=== PATIENT | female | born 1955 | race Caucasian/White ===

== ENCOUNTER 2025-04-27 06:51 | Day surgery (SDC) | payer MEDICARE, SELFPAY ==
[2025-04-26 08:17] VITALS: BMI 42.5
--- NOTE | 2025-04-27 07:01 | P.HP_ITS ---
History of Present Illness *Admission Date: 04/27/25 *Reason for visit:: Dyspepsia *History of present illness: Mrs. Pereira is a 69-year-old female who is here for diagnostic upper endoscopy secondary to epigastric abdominal pain that radiates up into her left chest. She has had bloating and belching which was awakening her at nighttime. She reports fullness, early satiety and a couple of episodes of nausea in the middle the night but no vomiting. She has been having heartburn and reflux regularly. She is on pantoprazole and Pepcid twice daily. She is still getting breakthrough symptoms. She was referred to both GI and cardiology and in the antrum of being seen ended up in the emergency department last month. Her CAT scan was unremarkable. She also had labs and cardiac evaluation which was unremarkable. Her last upper endoscopy was reportedly more than 10 years ago.. The examination is deemed medically necessary for diagnostic EGD. The patient has been seen, interviewed and examined prior to the procedure by both myself and the anesthesia provider. [facility] Disclaimer: The information contained in this section may have been updated after the patient was seen, as this information can be updated by other users. Medical History (Updated 04/27/25 @ 08:37 by Eligio Vera II, MD) History of gastroesophageal reflux (GERD) High blood pressure Surgical History H/O tubal ligation Family History Mother Cancer Grandfather Heart attack Daughter Cancer Social History (Updated 04/27/25 @ 08:10 by Neil Moss CRNA) Smoking Status: Never smoker alcohol intake: never substance use type: denies use current occupational status: retired Travel in the last 8 weeks?: Inside the [place] Have you lived/traveled outside US in past 30 days?: No Contact w/someone who lives/traveled outside US past 30 days?: No Exposure to someone with infectious disease in past 14 days?: No Do you have a fever (greater than 100.4 F or 38 C)?: No Have you tested positive for COVID-19?: No Exposed to someone with COVID-19 in past 14 days?: No Do you have a sore throat?: No Do you have a cough?: No Do you have any weakness?: No Are you experiencing any nausea/vomitting?: No Do you have any diarrhea?: No Are you experiencing any unusual bleeding?: No Do you have any muscle aches/pain?: No Do you have any abdominal pain?: No Are you experiencing loss of taste or smell?: No Other Medical History Have you received the Pneumonia Vaccine: Yes Review of Systems Review of Systems Review of systems (narrative): Negative *Cardiovascular Comments: Negative *Gastrointestinal Comments: Negative *Genitourinary Comments: Negative *Musculoskeletal Comments: Negative *Neurologic Comments: Negative Meds Home Medications and Allergies Home Medications ?Medication ?Instructions ?Recorded ?Confirmed ?Type famotidine 20 mg tablet (Pepcid) 20 mg PO BID 04/12/25 04/27/25 History losartan 50 mg tablet 50 mg PO BID 04/12/25 History pantoprazole 40 mg tablet,delayed 40 mg PO DAILY 04/1204/27/25 History release New Prescriptions to Start Prescriptions: Allergies Allergy/AdvReac Type Severity Reaction Status Date / Time No Known Allergies Allergy Verified 04/26/25 08:13 Exam Data for Last 24 hours I & O for Last 24 hours: Intake & Output 04/24/25 04/25/25 04/26/25 04/27/25 23:59 23:59 23:59 23:59 Weight 218 lb *Routine HEENT Exam Head: Present normocephalic Eye: Present EOMI and PERRL ENT: Present mucous membranes moist *Routine Neck Exam Neck: Present supple *Routine Respiratory Exam Respiratory: Present CTA bilaterally *Routine Cardiovascular Exam Cardiovascular: Present RRR *Routine Abdominal Exam Abdominal: Present soft and normoactive bowel sounds; Absent tenderness *Routine Rectal Exam Rectal:: deferred *Routine Genitalia Exam Genitalia:: deferred *Routine Extremities Exam Extremities: Absent cyanosis, clubbing or edema *Routine Skin Exam Skin: Present warm; Absent rash *Routine Neurological Exam Neurological: Present alert and oriented X3 Assessment and Plan *Assessment and plan (1) Non-cardiac chest pain: Status: Acute Category: Medical Code(s): R07.89 - Other chest pain (2) Epigastric pain: Status: Acute Category: Medical Code(s): R10.13 - Epigastric pain (3) Bloating: Status: Acute Category: Medical Code(s): R14.0 - Abdominal distension (gaseous) (4) Belching: Status: Acute Category: Medical Code(s): R14.2 - Eructation (5) Early satiety: Status: Acute Category: Medical Code(s): R68.81 - Early satiety (6) Gastroesophageal reflux disease: Status: Acute Category: Medical Code(s): K21.9 - Gastro-esophageal reflux disease without esophagitis (7) Heartburn: Status: Acute Category: Medical Code(s): R12 - Heartburn (8) Choking: Status: Acute Category: Medical Code(s): T17.308A - Unspecified foreign body in larynx causing other injury, initial encounter Plan A/P: 1. Noncardiac chest pain with dyspepsia, epigastric pain, bloating, belching, fullness, heartburn and reflux is the preprocedural diagnosis. The patient will be anesthetized/sedated using MAC sedation. The patient has been seen and examined. Cardiac and lung assessment prior to the examination is stable. Proceed with planned diagnostic EGD.
--- NOTE | 2025-04-27 07:05 | HMH.PROCNOTE ---
[facility] Procedure Note Date: 04/27/25 Time: 08:46 Procedure Note:: Upper Endoscopy Procedure Report: Esophagogastroduodenoscopy with cold biopsies and TTS balloon dilation Endoscopost: Eligio Vera II, MD Referring Physician: Sho Hameed MD, [address] [place] [address], [id number], [place] [address] Date of Procedure: April 27, 2025 Equipment: Olympus GIF-1100 standard upper endoscope Sedation: MAC sedation Indications: Mrs. Pereira is a 69-year-old female who is here for diagnostic upper endoscopy secondary to epigastric abdominal pain that radiates up into her left chest. She has had bloating and belching which was awakening her at nighttime. She reports fullness, early satiety and a couple of episodes of nausea in the middle the night but no vomiting. She has been having heartburn and reflux regularly. She is on pantoprazole and Pepcid twice daily. She is still getting breakthrough symptoms. She was referred to both GI and cardiology and in the antrum of being seen ended up in the emergency department last month. Her CAT scan was unremarkable. She also had labs and cardiac evaluation which was unremarkable. Her last upper endoscopy was reportedly more than 10 years ago. The patient does have some intermittent choking on liquids. She reports regular bowel function. The examination is deemed medically necessary for diagnostic EGD. Procedure: Prior to the procedure, a history and physical exam was performed, and patient's medications and allergies were reviewed. The risks, benefits and alternatives of the sedation and procedure were discussed with the patient. All questions were answered and informed consent was obtained. The patient was brought to the procedure room. Patient identification and proposed procedure were verified by the physician and the nurse. The patient was placed in a left lateral decubitus position and the scope was passed under direct vision. Throughout the procedure, the patient's blood pressure, pulse, and oxygen saturations were monitored continuously. The upper GI endoscopy was accomplished without difficulty. The patient tolerated the procedure well. Findings: The scope was passed directly into the upper esophagus and advanced to the third portion of the duodenum. The post bulbar duodenum and duodenal bulb were normal with normal mucosa and conniventes. A cold biopsy was taken from the second portion of the duodenum for the disaccharidase assay. The scope was withdrawn through a normal duodenal bulb and pylorus into the stomach. There was mild linear reactive gastropathy of the antrum. The body and fundus of the stomach were normal. Upon retroflexion there was no hiatal hernia. The scope was then withdrawn into the esophagus. There was no evidence of reflux esophagitis or Paredes's. There were tertiary contractions and evidence of mild esophageal dysmotility. The entire esophagus was dilated to 60 Occitan/20 mm with a TTS hydrostatic balloon. There was mild resistance at the cricopharyngeus. The remainder of the esophageal mucosa was normal. Impression: 1. Mild esophageal dysmotility with nonerosive GERD 2. Mild linear reactive gastropathy of antrum Plan: I will follow-up the biopsies and disaccharidase assay. 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 We will discuss treatment options.
[2025-04-27 07:37] VITALS: BP 159/84; PULSE 77; RESP 18; TEMP 36.4; O2SAT 100; BMI 42.5
[2025-04-27] MEDS: LACTATED RINGERS 1000ML 1,000 ML 50 ML IV (07:50)
--- NOTE | 2025-04-27 08:09 | EXP.ANES.CKL ---
[facility] Disclaimer: The information contained in this section may have been updated after the patient was seen, as this information can be updated by other users. Medical History History of gastroesophageal reflux (GERD) High blood pressure Surgical History H/O tubal ligation Family History Mother Cancer Grandfather Heart attack Daughter Cancer Social History (Updated 04/27/25 @ 07:38 by Raya Smith RN) Smoking Status: Never smoker alcohol intake: never substance use type: denies use current occupational status: retired Travel in the last 8 weeks?: Inside the [facility] Anesthesia Checklist Patient Identification Patient Identification: Verbal (Name & ) Structural Data Admitted From: Home Planned Operative Procedure/s: egd Consent for Planned Operative Procedure(s) Verified: Yes NPO Status Verified Time NPO: 00:00 Airway Assessment Mallampati Score:: Class II C-Spine Mobility Assessed: Yes TMJ Mobility Assessed: Yes Dentition: Good Dentition Neurological Assessment Level of Consciousness: Awake, Alert and Appropriate Anesthesia Plan Anesthesia Risk discussed: Yes Anesthesia Plan: Verified ASA Class: II Anesthesia Type: MAC
[2025-04-27 08:47] VITALS: BP 137/80; PULSE 78; RESP 15; TEMP 36.1; O2SAT 94
[2025-04-27 09:07] VITALS: BP 128/73; BP 135/77; PULSE 64; PULSE 71; RESP 16; TEMP 36.1; O2SAT 95; O2SAT 96
[2025-04-27 09:17] VITALS: BP 141/94; PULSE 69; RESP 18; TEMP 36.1; O2SAT 96
[2025-05-02 16:59] LABS: Interpretation Notes (.); Lactase 8.74 (>/= 14.0); Maltase 68.55 (>/= 110.0); Palatinase 4.83 (>/= 8.5); Reference Notes (.); Sucrase 12.88 (>/= 25.0)
== END 2025-04-27 09:45 | disposition home or self-care (01) ==
PROVIDERS: Visit Provider Internal Medicine Gastroenterology
PROC: 0DJ08ZZ Inspection of Upper Intestinal Tract, Via Natural or Artificial Opening Endoscopic (ICD-10-PCS; CPT 43239; principal; 2025-04-27 08:30)
DX: K21.9 Gastro-esophageal reflux disease without esophagitis (principal); K22.4 Dyskinesia of esophagus; K31.89 Other diseases of stomach and duodenum; T17.308A Unspecified foreign body in larynx causing other injury, initial encounter; K30 Functional dyspepsia; I10 Essential (primary) hypertension; W44.9XXA Unspecified foreign body entering into or through a natural orifice, initial encounter
CPT/HCPCS: 43239; 43249; 82657; C1726; J2003; J2704; J7120